=== PATIENT | male | born 1965 | race Caucasian/White ===

== ENCOUNTER 2021-10-21 11:11 | Emergency (ER) | payer BC ==
[2021-10-21 14:09] VITALS: BP 148/95; PULSE 75
== END 2021-10-21 11:30 | disposition home or self-care (01) ==
LOC: CC.ED 11:11
DX: K02.9 Dental caries, unspecified (principal); H92.01 Otalgia, right ear; Z79.899 Other long term (current) drug therapy
CPT/HCPCS: 99282